=== PATIENT | female | born 1965 | race Caucasian/White ===

== ENCOUNTER 2019-01-04 10:18 | Emergency (ER) | payer BC ==
[2019-01-04] MEDS ORDERED: Ondansetron 4 MG/2 ML SDV IVPUSH ONE (11:13)
[2019-01-04] MEDS ORDERED: Sodium Chloride 0.9% 10 ML Syringe FLUSH PRN (11:13)
[2019-01-04] MEDS ORDERED: hydrALAZINE 20 MG/ML SDV IVPUSH ONE (11:16)
--- NOTE | 2019-01-04 11:29 | EDM.PDOC ---
ED HPI GENERAL MEDICAL PROBLEM - General Chief Complaint: Neurological Problem Stated Complaint: HIGH BLOOD PRESSURE,SOB,BODY NUMB Time Seen by Provider: 01/04/19 11:00 Source of Information: Reports: Patient History Limitations: Reports: No Limitations - History of Present Illness INITIAL COMMENTS - FREE TEXT/NARRATIVE: 53 year old female presents for evaluation and treatment of shortness of breath , numbness and tingling to the arms and legs and hypertension. Patient reports this morning at 0300 she awoke suddenly gasping for breath. She describes a choking sensation. Denies any chest pain or throat swelling associated with this episode. Reports episode lasted 1-2 minutes. States that she had an episode of urinary incontinence following the episode. Reports no shortness of breath now. Reports numbness and tingling to the body is significantly improved since earlier but is still present. Patient reports since the episode she has had a severe headache. Rated an 8 or 9 /10. Attributes the headache to her elevated blood pressure. Reports her blood pressure usually is 120s-130s/ 80-90s. She is on propanolol for htn. Last dose was this morning. Reports associated dizziness with the headache, no syncope. No vision changes. Headache does not change with position. Did try tylenol for the headache without relief. Denies any fevers, chills, nausea, vomiting or skin rashes. Denies any dysuria or back pain. Patient has a history of PE blood clots in 2013 following a . She was previously on Coumadin but is on any blood thinners at this time. PCP is Dr. Lopez. - Related Data Allergies Allergy/AdvReac Type Severity Reaction Status Date / Time No Known Allergies Allergy Verified 01/04/19 10:34 Home Meds: Home Meds Escitalopram [Lexapro] 20 mg PO DAILY 01/04/19 [History] Propranolol [Inderal LA] 60 mg PO BID 01/04/19 [History] Past Medical History Cardiovascular History: Reports: Hypertension [employer] History: Reports: Neurological History: Reports: Migraines Psychiatric History: Reports: Depression - Past Surgical History Other HEENT Surgeries/Procedures: "3 ear surgeries" GI Surgical History: Reports: Appendectomy Female Surgical History: Reports: Section Social & Family History - Tobacco Use Smoking Status *Q: Never Smoker - Recreational Drug Use Recreational Drug Use: No ED ROS GENERAL - Review of Systems Review Of Systems: See Below Constitutional: Denies: Fever, Chills Respiratory: Reports: Shortness of Breath. Denies: Pleuritic Chest Pain Cardiovascular: Reports: Chest Pain (right lower lateral chest), Lightheadedness. Denies: Syncope GI/Abdominal: Denies: Abdominal Pain, Nausea, Vomiting : Reports: Incontinence. Denies: Dysuria Musculoskeletal: Denies: Back Pain Neurological: Reports: Dizziness, Headache, Numbness, Tingling. Denies: Syncope ED EXAM, GENERAL - Physical Exam Exam: See Below Exam Limited By: No Limitations General Appearance: Alert, WD/WN, No Apparent Distress, Obese Eye Exam: Bilateral Eye: EOMI, Normal Inspection, PERRL Ears: Normal External Exam Nose: Normal Inspection Throat/Mouth: Normal Inspection, Normal Lips, Normal Oropharynx, Normal Voice, No Airway Compromise Respiratory/Chest: No Respiratory Distress, Lungs Clear, Normal Breath Sounds Cardiovascular: Normal Peripheral Pulses, Regular Rate, Rhythm, No Edema, No Murmur Neurological: Alert, Oriented, Normal Cognition Psychiatric: Normal Affect, Normal Mood Skin Exam: Warm, Dry, Normal Color EKG INTERPRETATION EKG Date: 01/04/19 Time: 11:22 Rhythm: NSR Rate (Beats/Min): 58 [place]: Normal P-Wave: Present QRS: Normal ST-T: Normal QT: Normal EKG Interpretation Comments: NSR at 58 bpm. No acute changes. Reviewed by myself and Dr. Reveles. Course - Vital Signs Last Recorded V/S: Last Vital Signs Temp 96.8 F 01/04/19 10:30 Pulse 58 L 01/04/19 10:30 Resp 16 01/04/19 10:30 BP 152/118 H 01/04/19 10:30 Pulse Ox 91 L 01/04/19 10:30 - Orders/Labs/Meds Orders: Active Orders 24 hr Category Date Time Status Cardiac Monitoring [RC] . DIRECTED Care 01/04/19 11:13 Active EKG Documentation Completion [RC] ASDIRECTED Care 01/04/19 11:14 Active Peripheral IV Care [RC] . DIRECTED Care 01/04/19 11:14 Active UA W/MICROSCOPIC [URIN] Stat Lab 01/04/19 12:43 Ordered Peripheral IV Insertion Adult [OM.PC] Routine Oth 01/04/19 11:11 Ordered EKG 12 Lead [EK] Stat Ther 01/04/19 11:13 Ordered Labs: Laboratory Tests 01/04/19 01/04/19 01/04/19 Range/Units 11:55 11:55 11:55 WBC 5.91 (3.98-10.04) K/mm3 RBC 5.14 (3.98-5.22) M/mm3 Hgb 15.1 (11.2-15.7) gm/L Hct 44.0 (34.1-44.9) % MCV 85.6 (79.4-94.8) fl MCH 29.4 (25.6-32.2) pg MCHC 34.3 (32.2-35.5) g/dl RDW Std Deviation 40.5 (36.4-46.3) fL Plt Count 240 (182-369) K/mm3 MPV 10.1 (9.4-12.3) fl Neut % (Auto) 64.0 (34.0-71.1) % Lymph % (Auto) 21.3 (19.3-51.7) % [place] % (Auto) 10.8 (4.7-12.5) % Eos % (Auto) 3.4 (0.7-5.8) Baso % (Auto) 0.5 (0.1-1.2) % Neut # (Auto) 3.78 (1.56-6.13) K/mm3 Lymph # (Auto) 1.26 (1.18-3.74) K/mm3 [place] # (Auto) 0.64 H (0.24-0.36) K/mm3 Eos # (Auto) 0.20 (0.04-0.36) K/mm3 Baso # (Auto) 0.03 (0.01-0.08) K/mm3 D-Dimer, Quantitative 0.38 (0.19-0.50) mg/L Sodium 141 (136-145) mEq/L Potassium 4.1 (3.5-5.1) mEq/L Chloride 105 (98-107) mEq/L Carbon Dioxide 26 (21-32) mEq/L Anion Gap 14.1 (5-15) BUN 14 (7-18) mg/dL Creatinine 0.8 (0.55-1.02) mg/dL Est Cr Clr Drug Dosing 69.42 mL/min Estimated GFR (MDRD) > 60 (>60) mL/min BUN/Creatinine Ratio 17.5 (14-18) Glucose 83 (74-106) mg/dL Calcium 9.1 (8.5-10.1) mg/dL Magnesium 2.0 (1.8-2.4) mg/dl Total Bilirubin 0.5 (0.2-1.0) mg/dL AST 32 (15-37) U/L ALT 54 (14-59) U/L Alkaline Phosphatase 118 H (46-116) U/L Troponin I < 0.017 (0.00-0.056) ng/mL Total Protein 7.2 (6.4-8.2) g/dl Albumin 3.7 (3.4-5.0) g/dl Globulin 3.5 gm/dL Albumin/Globulin Ratio 1.1 (1-2) Meds: Medications Discontinued Medications Generic Name Dose Route Start Last Admin Trade Name Freq PRN Reason Stop Dose Admin Hydralazine HCl 10 mg 01/04/19 11:16 01/04/19 11:59 Apresoline IVPUSH 01/04/19 11:17 10 mg ONETIME ONE Administration Ketorolac Tromethamine 30 mg 01/04/19 12:35 01/04/19 12:58 Toradol IVPUSH 01/04/19 12:36 30 mg ONETIME ONE Administration Ondansetron HCl 4 mg 01/04/19 11:13 01/04/19 11:57 Zofran IVPUSH 01/04/19 11:14 4 mg ONETIME ONE Administration Sodium Chloride 10 ml 01/04/19 11:13 01/04/19 11:56 Saline Flush FLUSH 10 ml ASDIRECTED PRN Administration Keep Vein Open - Radiology Interpretation Free Text/Narrative:: Chest: Two views of the chest were obtained. Comparison: No prior chest x-ray. Heart size and mediastinum are within normal limits. Lungs are clear. Bony structures are unremarkable. Impression: 1. Nothing acute is seen on two-view chest x-ray. Head CT Technique: Multiple axial sections through the brain were obtained. Intravenous contrast was not utilized. Comparison: No prior intracranial imaging. Findings: Ventricles along with basal cisterns and sulci over the convexities appear within normal limits for the patient's age. No abnormal parenchymal densities are seen. No evidence of intracranial hemorrhage. No midline shift or mass effect is seen. Bone window settings were reviewed which show no acute calvarial abnormality. Slight mucosal thickening is seen within a portion of the residual right sided mastoid sinuses. Surgery is noted within the right temporal bone. No acute calvarial abnormality is seen. Impression: 1. Slight mucosal thickening within a portion of the residual right sided mastoid air cells. This is most likely chronic. Previous right temporal bone surgery is seen. 2. No acute intracranial abnormality is identified. - Re-Assessments/Exams Free Text/Narrative Re-Assessment/Exam: 01/04/19 13:51 Reviewed the labs, EKG and imaging with the patient. Discussed possible etiologies such as anxiety. She did mention that she snores quite a bit at night. It is possible that she is suffering from sleep apnea and had an apneic episode which caused her episode this morning. I recommend she discuss with her primary care provider obtaining a sleep study to further evaluate this. We also discussed her hypertension and I encouraged her to check this 3 or 4 times a week and record this and follow-up with her primary care provider. Will discharge home today Discharge instructions as documented. Departure - Departure Time of Disposition: 13:58 Disposition: Home, Self-Care 01 Condition: Fair Clinical Impression: Shortness of breath - Discharge Information *PRESCRIPTION DRUG MONITORING PROGRAM REVIEWED*: No *COPY OF PRESCRIPTION DRUG MONITORING REPORT IN PATIENT RUTH ANN: No Instructions: Shortness of Breath, Adult, [id number] Referrals: Wilian Kauffman MD [Primary Care Provider] - Forms: ED Department Discharge Additional Instructions: Recommend contacting Dr. Lopez to discuss obtaining a sleep study. Recommend checking your blood pressure 3 times a week at different times throughout the day. Record this and bring this your follow-up appointment with Dr. Lopez. Continue current medications and plan of care. Please return to the ER for symptoms change or worsen. - My Orders Last 24 Hours: My Active Orders 01/04/19 11:11 Peripheral IV Insertion Adult [OM.PC] Routine 01/04/19 11:13 Cardiac Monitoring [RC] . DIRECTED EKG 12 Lead [EK] Stat 01/04/19 11:14 EKG Documentation Completion [RC] ASDIRECTED Peripheral IV Care [RC] . DIRECTED 01/04/19 12:43 UA W/MICROSCOPIC [URIN] Stat - Assessment/Plan Last 24 Hours: My Active Orders 01/04/19 11:11 Peripheral IV Insertion Adult [OM.PC] Routine 01/04/19 11:13 Cardiac Monitoring [RC] . DIRECTED EKG 12 Lead [EK] Stat 01/04/19 11:14 EKG Documentation Completion [RC] ASDIRECTED Peripheral IV Care [RC] . DIRECTED 01/04/19 12:43 UA W/MICROSCOPIC [URIN] Stat
[2019-01-04] MEDS ORDERED: Ketorolac 30 MG/ML SDV IVPUSH ONE (12:35)
--- NOTE | 2019-01-04 12:36 | CR ---
Chest: Two views of the chest were obtained. Comparison: No prior chest x-ray. Heart size and mediastinum are within normal limits. Lungs are clear. Bony structures are unremarkable. Impression: 1. Nothing acute is seen on two-view chest x-ray. Diagnostic code #1
--- NOTE | 2019-01-04 12:36 | CT ---
Head CT Technique: Multiple axial sections through the brain were obtained. Intravenous contrast was not utilized. Comparison: No prior intracranial imaging. Findings: Ventricles along with basal cisterns and sulci over the convexities appear within normal limits for the patient's age. No abnormal parenchymal densities are seen. No evidence of intracranial hemorrhage. No midline shift or mass effect is seen. Bone window settings were reviewed which show no acute calvarial abnormality. Slight mucosal thickening is seen within a portion of the residual right sided mastoid sinuses. Surgery is noted within the right temporal bone. No acute calvarial abnormality is seen. Impression: 1. Slight mucosal thickening within a portion of the residual right sided mastoid air cells. This is most likely chronic. Previous right temporal bone surgery is seen. 2. No acute intracranial abnormality is identified. Diagnostic code #2
== END 2019-01-04 14:45 | disposition home or self-care (01) ==
LOC: JD.ED 10:18
DX: R06.02 Shortness of breath (principal); I10 Essential (primary) hypertension; Z79.899 Other long term (current) drug therapy
CPT/HCPCS: 36415; 70450; 71046; 80053; 83735; 84484; 85025; 85379; 93005; 96374; 96375; 99285; J0360; J1885; J2405; 93010; 99284

== ENCOUNTER 2019-08-17 08:18 | Day surgery (SDC) | payer BC ==
--- NOTE | 2019-08-17 08:07 | PCM.PREANE ---
Preanesthetic Assessment - Anesthesia/Transfusion/Family Hx Anesthesia History: Prior Anesthesia Without Reaction Family History of Anesthesia Reaction: No Transfusion History: No Prior Transfusion(s) Intubation History: Unknown - Review of Systems Pulmonary: No Symptoms (SHELLI with CPAP, Ashtma: last used albuterol-March with chest cold /History of Pulmonary Emboli: 2003, ETOH: rarely) Cardiovascular: No Symptoms (HTN) Gastrointestinal: No Symptoms Neurological: No Symptoms (Motion Sickness) Other: Reports: None, Liver Problems (Elevated liver enzymes noted with hepatic steatosis.), Depression, Anxiety - Physical Assessment NPO Status Date: 08/16/19 NPO Status Time: 20:00 Vital Signs: HR:57 BP:150/82 Resp:16 Sat:94% Temp:97.3f Height: 1.63 m Weight: 110.677 kg ASA Class: 2 Mental Status: Alert & Oriented x3 Airway Class: Mallampati = 2 Dentition: Reports: Normal Dentition, Caries Thyro-Mental Finger Breadths: 3 Mouth Opening Finger Breadths: 3 ROM/Head Extension: Full Lungs: Clear to Auscultation, Normal Respiratory Effort Cardiovascular: Regular Rate, Regular Rhythm, No Murmurs - Lab Values: All labs reviewed and noted and within acceptable ranges to proceed with scheduled procedure. - Imaging/EKG Impressions: EKG: (SR rate=58) CXR: negative - Allergies Allergies/Adverse Reactions: Allergies Allergy/AdvReac Type Severity Reaction Status Date / Time acetaminophen [From Percocet] Allergy Other Verified 08/16/19 15:16 clarithromycin [From Biaxin] Allergy Other Verified 08/16/19 15:16 doxycycline Allergy Other Verified 08/16/19 15:16 oxycodone [From Percocet] Allergy Other Verified 08/16/19 15:16 - Anesthesia Plan Pre-Op Medication Ordered: Beta Fausto Beta Fausto: Propranolol Med Last Dose Date: 08/17/19 Med Last Dose Time: 06:30 - Acknowledgements Anesthesia Type Planned: General Anesthesia Pt an Appropriate Candidate for the Planned Anesthesia: Yes Alternatives and Risks of Anesthesia Discussed w Pt/Guardian: Yes Pt/Guardian Understands and Agrees with Anesthesia Plan: Yes PreAnesthesia Questionnaire HEENT History: Reports: Other (See Below) Other HEENT History: 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, chronic mastoiditis, history of I&D to ear, eustachian tube dysfuction Cardiovascular History: Reports: Hypertension Respiratory History: Reports: PE, Sleep Apnea Gastrointestinal History: Reports: Other (See Below) Other Gastrointestinal History: elevated LFTs, hepatic stenosis STAFF PHARMACIST History: Reports: Endometrial Ablation, , Other (See Below) Other OB/BYN History: uterine leiomyoma,left breast mass Musculoskeletal History: Reports: None Neurological History: Reports: Migraines Psychiatric History: Reports: Depression Endocrine/Metabolic History: Reports: Vitamin D Deficiency Hematologic History: Reports: Anemia Immunologic History: Reports: None Oncologic (Cancer) History: Reports: None Dermatologic History: Reports: None - Past Surgical History Head Surgeries/Procedures: Reports: None HEENT Surgical History: Reports: Myringotomy w Tube(s) Other HEENT Surgeries/Procedures: "3 ear surgeries" Cardiovascular Surgical History: Reports: None Respiratory Surgical History: Reports: None GI Surgical History: Reports: Appendectomy, Colonoscopy Female Surgical History: Reports: Section, Tubal Ligation, Other ( See Below) Other Female Surgeries/Procedures: laparoscopic lysis of adhesions Endocrine Surgical History: Reports: None Neurological Surgical History: Reports: None Musculoskeletal Surgical History: Reports: None Oncologic Surgical History: Reports: None Dermatological Surgical History: Reports: None - SUBSTANCE USE Smoking Status *Q: Never Smoker Recreational Drug Use History: No - HOME MEDS Home Medications: Home Meds Escitalopram [Lexapro] 20 mg PO DAILY 01/04/19 [History] Propranolol [Inderal LA] 60 mg PO BID 01/04/19 [History] Albuterol Sulfate [Proair Hfa] 1 - 2 puff INH Q4H PRN 08/16/19 [History] - CURRENT (IN HOUSE) MEDS Current Meds: Current Medications Lactated Ringer's (Ringers, Lactated) 1,000 mls @ 125 mls/hr IV ASDIRECTED NIDIA Stop: 08/17/19 23:00 Lidocaine/Sodium Bicarbonate (Buffered Lidocaine 1% In Ns 8.4%) 0.25 ml IDERM ONETIME PRN PRN Reason: Prior to IV Start Stop: 08/17/19 23:00 Sodium Chloride (Saline Flush) 10 ml FLUSH ASDIRECTED PRN PRN Reason: Keep Vein Open Stop: 08/17/19 23:00 Discontinued Medications Cefazolin Sodium (Ancef) Confirm Administered Dose 2 gm .ROUTE .STK-MED ONE Stop: 08/17/19 06:36 Dexamethasone (Dexamethasone) Confirm Administered Dose 20 mg .ROUTE .STK-MED ONE Stop: 08/17/19 06:36 Fentanyl (Sublimaze) Confirm Administered Dose 250 mcg .ROUTE .STK-MED ONE Stop: 08/17/19 06:37 Hydromorphone HCl (Dilaudid) Confirm Administered Dose 0.5 mg .ROUTE .STK-MED ONE Stop: 08/17/19 06:36 Lidocaine HCl (Xylocaine-Mpf 1%) Confirm Administered Dose 6 mls @ as directed .ROUTE .STK-MED ONE Stop: 08/17/19 06:36 Lactated Ringer's (Ringers, Lactated) Confirm Administered Dose 1,000 mls @ as directed .ROUTE .STK-MED ONE Stop: 08/17/19 06:36 Ketorolac Tromethamine (Toradol) Confirm Administered Dose 30 mg .ROUTE .STK- MED ONE Stop: 08/17/19 06:36 Midazolam HCl (Versed 1 Mg/Ml) Confirm Administered Dose 2 mg .ROUTE .STK-MED ONE Stop: 08/17/19 06:37 Ondansetron HCl (Zofran) Confirm Administered Dose 4 mg .ROUTE .STK-MED ONE Stop: 08/17/19 06:36 Propofol (Diprivan 20 Ml) Confirm Administered Dose 200 mg .ROUTE .STK-MED ONE Stop: 08/17/19 06:36 Rocuronium [place] (Zemuron) Confirm Administered Dose 100 mg .ROUTE .STK-MED ONE Stop: 08/17/19 06:36
[~2019-08-17 08:18] MED LIST: Dexamethasone 4 MG/ML 5 ML MDV ONE; HYDROmorphone 0.5 MG/0.5 ML Syringe ONE; Ketorolac 30 MG/ML SDV ONE; Lactated Ringers 1,000 ML IV SCH; Lactated Ringers 1,000 ML ONE; Lidocaine 1% 6 ML ONE; Lidocaine 1%/Sod Bicarbonate in NS 8.4% 1 ML Syringe IDERM PRN; Midazolam 1 MG/ML 2 ML SDV ONE; Ondansetron 4 MG/2 ML SDV ONE; Propofol 200 MG/20 ML SDV ONE; Rocuronium 100 MG/10 ML MDV ONE; Sodium Chloride 0.9% 10 ML Syringe FLUSH PRN; ceFAZolin 1 GM Vial ONE; fentaNYL 250 MCG/5 ML SDV ONE
[2019-08-17] MEDS ORDERED: Bupivacaine 0.5% 30 ML SDV ONE (09:01)
[2019-08-17] MEDS ORDERED: Sodium Chloride 0.9% 20 ML ONE (09:01)
[2019-08-17] MEDS ORDERED: Lidocaine 1% with EPINEPHrine 1:100,000 20 ML MDV ONE (09:01)
[2019-08-17] MEDS ORDERED: Albuterol 0.083% 2.5 MG/3 ML Neb Soln NEB SCH (10:00)
[2019-08-17] MEDS ORDERED: Phenylephrine/Normal Saline 100 MCG/ML 10 ML Syringe ONE (10:19)
[2019-08-17] MEDS ORDERED: ePHEDrine/Normal Saline 25 MG/5 ML Syringe ONE ×2 (10:31→11:32)
[2019-08-17] MEDS ORDERED: Ondansetron 4 MG/2 ML SDV IVPUSH PRN ×2 (10:33→13:07)
[2019-08-17] MEDS ORDERED: HYDROmorphone 0.5 MG/0.5 ML Syringe IVPUSH PRN (10:33)
[2019-08-17] MEDS ORDERED: fentaNYL 100 MCG/2 ML SDV IVPUSH PRN (10:33)
[2019-08-17] MEDS ORDERED: diphenhydrAMINE 50 MG/ML SDV IVPUSH PRN (10:33)
[2019-08-17] MEDS ORDERED: Albuterol 0.083% 2.5 MG/3 ML Neb Soln NEB PRN (10:33)
[2019-08-17] MEDS ORDERED: ePHEDrine 50 MG/ML SDV IVPUSH PRN (10:33)
[2019-08-17] MEDS ORDERED: Lactated Ringers 1,000 ML ONE ×3 (10:42→12:12)
[2019-08-17] MEDS ORDERED: Phenylephrine 1 MG in Sodium Chloride 0.9% 10 ML IV SCH (10:45)
[2019-08-17] MEDS ORDERED: Neostigmine Methylsulfate 1 MG/ML 5 ML Syringe ONE (11:00)
[2019-08-17] MEDS ORDERED: HYDROmorphone 0.5 MG/0.5 ML Syringe ONE (12:12)
--- NOTE | 2019-08-17 12:51 | PCM.OPNOTE ---
- General Post-Op/Procedure Note Date of Surgery/Procedure: 08/17/19 Operative Procedure(s): Laparoscope assisted vaginal hysterectomy bilateral salpingo-oophorectomy Pre Op Diagnosis: Postmenopausal bleeding, history of fibroid uterus Post-Op Diagnosis: Same Anesthesia Technique: General ET Tube Primary Surgeon: Shayne Padron Secondary Surgeon: Jamey Talbert Anesthesia Provider: Regine Banks Home Health Aid: Deb Orellana ([facility]) Reason Home Health Aid Was Necessary: Assist in surgery, decrease co-morbidity and mortality Role of Home Health Aid: Assist in surgery, decrease co-morbidity and mortality Fluid Replacement, Intraop: 2,400 Output, Urine Amount: 325 EBL in mLs: 600 Drain/Tube Comments:: rosenberg Complications: none Condition: Good Free Text/Narrative:: The patient was transported to the operating room placed under general anesthesia with endotracheal intubation in the low dorsal lithotomy position and prepared and draped in a sterile fashion. SCDs in place and functioning prior surgery. Ancef 2 g given intravenously prior surgery. After having been prepared and draped in a sterile fashion timeout performed confirming name date of and procedure. Rosenberg catheter was placed to gravity drainage and 2 mL of Marcaine without epinephrine injected into the area of the planned incision at the umbilicus a 6 mm incision was made pneumoperitoneum needle was introduced and pneumoperitoneum was obtained without difficulty, the 5 mm self- retaining trocar then introduced. Same procedure carried out on the right left side 2 fingerbreadths and 2 finger breaths absent superior iliac crest transilluminating the abdominal cavity and injecting 2 mL of Marcaine and 5 mm incision trochars introduced without difficulty under direct visualization with the laparoscope. The patient was placed in Trendelenburg position uterus was grasped and the planned procedure of hysterectomy with bilateral salpingo- oophorectomy was begun. Beginning on the right side the infundibulopelvic ligament was crossclamped with the Enseal activated and incised and proceeding towards the uterus the tissue was grasped with the Enseal activated and incised the round ligament was crossclamped activated and incised with Enseal. Proceeding caudad close to the uterus crossclamping with Enseal activating and incising until the reflection of the lower uterine segment at the area of the bladder reflection was undermined with Enseal crossclamped activated and incised and one additional bite on the right side to incorporate the uterine vasculature Enseal was activated and incised. Same procedure was counseled left side beginning at the left in infundibulopelvic ligament crossclamping with the Enseal activating and incising proceeding towards the uterus crossclamping, activating and incising with the Enseal. Round ligament was then crossclamped Enseal activated and incised. Proceeding cephalad the broad ligament was crossclamped with the Enseal activated in size until the reflection of the bladder flap at the lower uterine segment was approximated with the Enseal and undermined and meeting in the midline where the previous incision had been made for the bladder flap. One additional bite taken towards the cervix and the abdominal portion of the procedure was completed. The vaginal portion was then begun. Grasping the cervix and injecting 10 mL of lidocaine 0.25% with epinephrine and multiple confluent areas. A circumscribing incision was made with the scalpel. Tear colpotomy was then performed crossclamping the uterosacral cardinal bundles with the Enseal activating and incising anteriorly attempted entry into the anterior cul-de-sac but not able to do so at this time additional bite left and right taken with the Enseal activated and incised the anterior colpotomy was then performed without difficulty proceeding cephalad additional clamping of the Enseal activating incising the uterus was then removed. The posterior vaginal cuff was closed with running locked suture of 0 Monocryl. One arterial bleeder was noted and this was grasped and suture applied it appeared that the bleeding had been secured however as a precaution pneumoperitoneum was reobtained and inspection of the operative site showed no active bleeding. Returning to the vaginal portion of the procedure the anterior posterior cuff were approximated with running locking suture of 0 Monocryl. Returning to the laparoscopic portion of the procedure to check for bleeding no no active bleeding was encountered. FloSeal was placed along the raw surface areas to aid in hemostasis. Sponge needle pack instrument counts were correct on closure of the vagina as well as closure of the abdomen and removal of the trochars was accomplished without difficulty the 3 incisions were closed with 4- 0 interrupted Monocryl and Dermabond applied. No blood transfusions required during the procedure. She was transported postanesthesia care unit in satisfactory condition. Talked with her and discussed the surgical procedure all questions were answered to his voiced satisfaction. Patient will be kept overnight as a precaution to observe for bleeding and other complications. 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)
--- NOTE | 2019-08-17 13:05 | PCM.POSTAN ---
POST ANESTHESIA ASSESSMENT - MENTAL STATUS Mental Status: Alert - VITAL SIGNS Vital Signs: Last Vital Signs Temp 97.8f 08/17/19 1250 Pulse 57 08/17/19 1250 Resp 13 08/17/19 1250 BP 143/79 08/17/19 1250 Pulse Ox 97 08/17/19 1250 - RESPIRATORY Respiratory Status: Respiratory Rate WNL, Airway Patent, O2 Saturation Stable, Supplemental Oxygen - CARDIOVASCULAR CV Status: Pulse Rate WNL, Blood Pressure Stable - GASTROINTESTINAL GI Status: No Symptoms - POST OP HYDRATION Hydration Status: Adequate & Stable
[2019-08-17] MEDS ORDERED: Acetaminophen/HYDROcodone 325-5 MG Tab PO PRN (13:07)
--- NOTE | 2019-08-17 15:10 | PCM48HPAN ---
Post Anesthesia Note - EVALUATION WITHIN 48HRS OF ANESTHETIC Vital Signs in Normal Range: Yes Patient Participated in Evaluation: Yes Respiratory Function Stable: Yes Airway Patent: Yes Cardiovascular Function Stable: Yes Hydration Status Stable: Yes Pain Control Satisfactory: Yes Nausea and Vomiting Control Satisfactory: Yes Mental Status Recovered: Yes Vital Signs: Last Vital Signs Temp 36.2 C 08/17/19 13:50 Pulse 56 L 08/17/19 14:20 Resp 11 L 08/17/19 14:20 BP 110/63 08/17/19 14:20 Pulse Ox 98 08/17/19 14:20 - COMMENTS/OBSERVATIONS Free Text/Narrative:: Mary is comfortable. She has a history of SHELLI with CPAP use. Pulse oximeter recommended post op for monitoring.
[2019-08-17] MEDS: Ketorolac 30 MG/ML SDV IVPUSH SCH ×2 (17:01→18:57)
[2019-08-17] MEDS ORDERED: Enoxaparin 40 MG/0.4 ML Syringe SUBCUT ONE (19:00)
[2019-08-17] MEDS: Propranolol 60 MG Cap.ER PO SCH (21:20)
[2019-08-17] MEDS: Acetaminophen 325 MG Tab PO PRN (21:35)
[2019-08-18] MEDS: Ketorolac 30 MG/ML SDV IVPUSH SCH (02:49)
[2019-08-18] MEDS: Propranolol 60 MG Cap.ER PO SCH (08:54)
[2019-08-18] MEDS: Acetaminophen 325 MG Tab PO PRN (08:55)
[2019-08-18] MEDS ORDERED: Citalopram 20 MG Tab PO SCH (09:00)
--- NOTE | 2019-08-18 10:14 | PCM.SN ---
- Free Text/Narrative Note: Post Op Note Subjective: Patient reports feeling well overall. Pain minimal and controlled with oral medications. Tolerating regular diet. Reports not passing flatus. Voiding without difficulty after removal of her catheter this morning. Ambulating without difficulty but did have some mild lightheadedness upon first standing this morning. Reports minimal vaginal bleeding at this time. Objective: Vitals Vital Signs - 8 hr 08/18/19 08/18/19 08/18/19 02:54 05:43 07:53 Temperature 36.3 C 36.5 C Pulse, 54 L 55 L Peripheral Respiratory 14 16 Rate Blood Pressure 112/54 L 125/75 O2 Sat by Pulse 99 92 L Oximetry O2 Sat by Pulse 94 L Oximetry [ Nasal Cannula] Gen: No acute distress, alert and oriented Lungs: Clear to auscultation bilaterally Heart: Regular rate and rhythm Abdomen: Soft, minimal appropriate tenderness, nondistended, bowel sounds positive Incisions: Healing well, no bleeding or discharge, no erythema present, skin glue covering incisions Pelvic: No bleeding present on lenny-pad Laboratory Results - last 24 hr 08/17/19 08/17/19 08/18/19 Range/Units 08:50 19:05 05:11 WBC 10.43 H 12.23 H (3.98-10.04) K/mm3 RBC 4.29 3.86 L (3.98-5.22) M/mm3 Hgb 12.3 D 11.4 (11.2-15.7) gm/dl Hct 37.8 34.1 (34.1-44.9) % MCV 88.1 88.3 (79.4-94.8) fl MCH 28.7 29.5 (25.6-32.2) pg MCHC 32.5 33.4 (32.2-35.5) g/dl RDW Std Deviation 39.9 39.5 (36.4-46.3) fL Plt Count 243 237 (182-369) K/mm3 MPV 9.9 10.4 (9.4-12.3) fl Neut % (Auto) 91.8 H 87.3 H (34.0-71.1) % Lymph % (Auto) 6.8 L 8.2 L (19.3-51.7) % [place] % (Auto) 1.2 L 4.3 L (4.7-12.5) % Eos % (Auto) 0 L 0.1 L (0.7-5.8) Baso % (Auto) 0.1 0.1 (0.1-1.2) % Neut # (Auto) 9.57 H 10.69 H (1.56-6.13) K/mm3 Lymph # (Auto) 0.71 L 1.00 L (1.18-3.74) K/mm3 [place] # (Auto) 0.13 L 0.52 H (0.24-0.36) K/mm3 Eos # (Auto) 0.00 L 0.01 L (0.04-0.36) K/mm3 Baso # (Auto) 0.01 0.01 (0.01-0.08) K/mm3 Manual Slide Review Abnormal smear Abnormal smear Blood Type A POSITIVE Gel Antibody Screen Negative Crossmatch See Detail Assesment/Plan: 53-year-old with postmenopausal bleeding and uterine fibroid status post laparoscopic-assisted vaginal hysterectomy with bilateral salpingo-oophorectomy POD #1 Doing well No concerns at this time Routine post op care Monitor vitals Patient with history of DVT x3 and started on Lovenox 40 mg subcutaneous last evening at 1900 hrs. Patient to continue this for 2 weeks after discharge. Patient with drop in her hemoglobin from 12.3 at 1800 last evening down to 11.4 at 0500 this morning. We will get a repeat blood draw to check her hemoglobin level at 11 AM to check for stability of her bleeding status. Anticipate discharge home today if she is having minimal change in her hemoglobin level on recheck later this morning Jamey Talbert MD 10:13 AM 08/18/2019
--- NOTE | 2019-08-18 11:44 | PCM.DCSUM1 ---
Discharge Summary - Hospital Course Free Text/Narrative:: The patient was transported to the operating room placed under general anesthesia with endotracheal intubation in the low dorsal lithotomy position and prepared and draped in a sterile fashion. SCDs in place and functioning prior surgery. Ancef 2 g given intravenously prior surgery. After having been prepared and draped in a sterile fashion timeout performed confirming name date of and procedure. Hennessy catheter was placed to gravity drainage and 2 mL of Marcaine without epinephrine injected into the area of the planned incision at the umbilicus a 6 mm incision was made pneumoperitoneum needle was introduced and pneumoperitoneum was obtained without difficulty, the 5 mm self- retaining trocar then introduced. Same procedure carried out on the right left side 2 fingerbreadths and 2 finger breaths absent superior iliac crest transilluminating the abdominal cavity and injecting 2 mL of Marcaine and 5 mm incision trochars introduced without difficulty under direct visualization with the laparoscope. The patient was placed in Trendelenburg position uterus was grasped and the planned procedure of hysterectomy with bilateral salpingo- oophorectomy was begun. Beginning on the right side the infundibulopelvic ligament was crossclamped with the Enseal activated and incised and proceeding towards the uterus the tissue was grasped with the Enseal activated and incised the round ligament was crossclamped activated and incised with Enseal. Proceeding caudad close to the uterus crossclamping with Enseal activating and incising until the reflection of the lower uterine segment at the area of the bladder reflection was undermined with Enseal crossclamped activated and incised and one additional bite on the right side to incorporate the uterine vasculature Enseal was activated and incised. Same procedure was counseled left side beginning at the left in infundibulopelvic ligament crossclamping with the Enseal activating and incising proceeding towards the uterus crossclamping, activating and incising with the Enseal. Round ligament was then crossclamped Enseal activated and incised. Proceeding cephalad the broad ligament was crossclamped with the Enseal activated in size until the reflection of the bladder flap at the lower uterine segment was approximated with the Enseal and undermined and meeting in the midline where the previous incision had been made for the bladder flap. One additional bite taken towards the cervix and the abdominal portion of the procedure was completed. The vaginal portion was then begun. Grasping the cervix and injecting 10 mL of lidocaine 0.25% with epinephrine and multiple confluent areas. A circumscribing incision was made with the scalpel. Tear colpotomy was then performed crossclamping the uterosacral cardinal bundles with the Enseal activating and incising anteriorly attempted entry into the anterior cul-de-sac but not able to do so at this time additional bite left and right taken with the Enseal activated and incised the anterior colpotomy was then performed without difficulty proceeding cephalad additional clamping of the Enseal activating incising the uterus was then removed. The posterior vaginal cuff was closed with running locked suture of 0 Monocryl. One arterial bleeder was noted and this was grasped and suture applied it appeared that the bleeding had been secured however as a precaution pneumoperitoneum was reobtained and inspection of the operative site showed no active bleeding. Returning to the vaginal portion of the procedure the anterior posterior cuff were approximated with running locking suture of 0 Monocryl. Returning to the laparoscopic portion of the procedure to check for bleeding no no active bleeding was encountered. FloSeal was placed along the raw surface areas to aid in hemostasis. Sponge needle pack instrument counts were correct on closure of the vagina as well as closure of the abdomen and removal of the trochars was accomplished without difficulty the 3 incisions were closed with 4- 0 interrupted Monocryl and Dermabond applied. No blood transfusions required during the procedure. She was transported postanesthesia care unit in satisfactory condition. Talked with her and discussed the surgical procedure all questions were answered to his voiced satisfaction. Patient will be kept overnight as a precaution to observe for bleeding and other complications. 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 SCDs in place and functioning prior surgery. Ancef 2 g given intravenously prior surgery. After having been prepared and draped in a sterile fashion timeout performed confirming name date of and procedure. Hennessy catheter was placed to gravity drainage and 2 mL of Marcaine without epinephrine injected into the area of the planned incision at the umbilicus a 6 mm incision was made pneumoperitoneum needle was introduced and pneumoperitoneum was obtained without difficulty, the 5 mm self- retaining trocar then introduced. Same procedure carried out on the right left side 2 fingerbreadths and 2 finger breaths absent superior iliac crest transilluminating the abdominal cavity and injecting 2 mL of Marcaine and 5 mm incision trochars introduced without difficulty under direct visualization with the laparoscope. The patient was placed in Trendelenburg position uterus was grasped and the planned procedure of hysterectomy with bilateral salpingo- oophorectomy was begun. Beginning on the right side the infundibulopelvic ligament was crossclamped with the Enseal activated and incised and proceeding towards the uterus the tissue was grasped with the Enseal activated and incised the round ligament was crossclamped activated and incised with Enseal. Proceeding caudad close to the uterus crossclamping with Enseal activating and incising until the reflection of the lower uterine segment at the area of the bladder reflection was undermined with Enseal crossclamped activated and incised and one additional bite on the right side to incorporate the uterine vasculature Enseal was activated and incised. Same procedure was counseled left side beginning at the left in infundibulopelvic ligament crossclamping with the Enseal activating and incising proceeding towards the uterus crossclamping, activating and incising with the Enseal. Round ligament was then crossclamped Enseal activated and incised. Proceeding cephalad the broad ligament was crossclamped with the Enseal activated in size until the reflection of the bladder flap at the lower uterine segment was approximated with the Enseal and undermined and meeting in the midline where the previous incision had been made for the bladder flap. One additional bite taken towards the cervix and the abdominal portion of the procedure was completed. The vaginal portion was then begun. Grasping the cervix and injecting 10 mL of lidocaine 0.25% with epinephrine and multiple confluent areas. A circumscribing incision was made with the scalpel. Tear colpotomy was then performed crossclamping the uterosacral cardinal bundles with the Enseal activating and incising anteriorly attempted entry into the anterior cul-de-sac but not able to do so at this time additional bite left and right taken with the Enseal activated and incised the anterior colpotomy was then performed without difficulty proceeding cephalad additional clamping of the Enseal activating incising the uterus was then removed. The posterior vaginal cuff was closed with running locked suture of 0 Monocryl. One arterial bleeder was noted and this was grasped and suture applied it appeared that the bleeding had been secured however as a precaution pneumoperitoneum was reobtained and inspection of the operative site showed no active bleeding. Returning to the vaginal portion of the procedure the anterior posterior cuff were approximated with running locking suture of 0 Monocryl. Returning to the laparoscopic portion of the procedure to check for bleeding no no active bleeding was encountered. FloSeal was placed along the raw surface areas to aid in hemostasis. Sponge needle pack instrument counts were correct on closure of the vagina as well as closure of the abdomen and removal of the trochars was accomplished without difficulty the 3 incisions were closed with 4- 0 interrupted Monocryl and Dermabond applied. No blood transfusions required during the procedure. She was transported postanesthesia care unit in satisfactory condition. Talked with her and discussed the surgical procedure all questions were answered to his voiced satisfaction. Patient will be kept overnight as a precaution to observe for bleeding and other complications. 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 SCDs in place and functioning prior surgery. Ancef 2 g given intravenously prior surgery. After having been prepared and draped in a sterile fashion timeout performed confirming name date of and procedure. Hennessy catheter was placed to gravity drainage and 2 mL of Marcaine without epinephrine injected into the area of the planned incision at the umbilicus a 6 mm incision was made pneumoperitoneum needle was introduced and pneumoperitoneum was obtained without difficulty, the 5 mm self-retaining trocar then introduced. Same procedure carried out on the right left side 2 fingerbreadths and 2 finger breaths absent superior iliac crest transilluminating the abdominal cavity and injecting 2 mL of Marcaine and 5 mm incision trochars introduced without difficulty under direct visualization with the laparoscope. The patient was placed in Trendelenburg position uterus was grasped and the planned procedure of hysterectomy with bilateral salpingo-oophorectomy was begun. Beginning on the right side the infundibulopelvic ligament was crossclamped with the Enseal activated and incised and proceeding towards the uterus the tissue was grasped with the Enseal activated and incised the round ligament was crossclamped activated and incised with Enseal. Proceeding caudad close to the uterus crossclamping with Enseal activating and incising until the reflection of the lower uterine segment at the area of the bladder reflection was undermined with Enseal crossclamped activated and incised and one additional bite on the right side to incorporate the uterine vasculature Enseal was activated and incised. Same procedure was counseled left side beginning at the left in infundibulopelvic ligament crossclamping with the Enseal activating and incising proceeding towards the uterus crossclamping, activating and incising with the Enseal. Round ligament was then crossclamped Enseal activated and incised. Proceeding cephalad the broad ligament was crossclamped with the Enseal activated in size until the reflection of the bladder flap at the lower uterine segment was approximated with the Enseal and undermined and meeting in the midline where the previous incision had been made for the bladder flap. One additional bite taken towards the cervix and the abdominal portion of the procedure was completed. The vaginal portion was then begun. Grasping the cervix and injecting 10 mL of lidocaine 0.25% with epinephrine and multiple confluent areas. A circumscribing incision was made with the scalpel. Tear colpotomy was then performed crossclamping the uterosacral cardinal bundles with the Enseal activating and incising anteriorly attempted entry into the anterior cul-de-sac but not able to do so at this time additional bite left and right taken with the Enseal activated and incised the anterior colpotomy was then performed without difficulty proceeding cephalad additional clamping of the Enseal activating incising the uterus was then removed. The posterior vaginal cuff was closed with running locked suture of 0 Monocryl. One arterial bleeder was noted and this was grasped and suture applied it appeared that the bleeding had been secured however as a precaution pneumoperitoneum was reobtained and inspection of the operative site showed no active bleeding. Returning to the vaginal portion of the procedure the anterior posterior cuff were approximated with running locking suture of 0 Monocryl. Returning to the laparoscopic portion of the procedure to check for bleeding no no active bleeding was encountered. FloSeal was placed along the raw surface areas to aid in hemostasis. Sponge needle pack instrument counts were correct on closure of the vagina as well as closure of the abdomen and removal of the trochars was accomplished without difficulty the 3 incisions were closed with 4-0 interrupted Monocryl and Dermabond applied. No blood transfusions required during the procedure. She was transported postanesthesia care unit in satisfactory condition. Talked with her and discussed the surgical procedure all questions were answered to his voiced satisfaction. Patient will be kept overnight as a precaution to observe for bleeding and other complications. 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) Diagnosis: Stroke: No - Discharge Data Discharge Date: 08/18/19 Discharge Disposition: Home, Self-Care 01 Condition: Good - Referral to Home Health Primary Care Physician: Wilian Kauffman MD - Discharge Diagnosis/Problem(s) (1) Postmenopausal bleeding SNOMED Code(s): 57634688 ICD Code: N95.0 - POSTMENOPAUSAL BLEEDING Status: Acute Current Visit: Yes (2) Uterine fibroid SNOMED Code(s): 63663778 ICD Code: D25.9 - LEIOMYOMA OF UTERUS, UNSPECIFIED Status: Acute Current Visit: Yes (3) S/P laparoscopic assisted vaginal hysterectomy (LAVH) SNOMED Code(s): 650797095, 13493424, 288618785 ICD Code: Z90.710 - ACQUIRED ABSENCE OF BOTH CERVIX AND UTERUS Status: Acute Current Visit: Yes (4) S/P BSO (bilateral salpingo-oophorectomy) SNOMED Code(s): 780318846, 471686627 ICD Code: Z90.722 - ACQUIRED ABSENCE OF OVARIES, BILATERAL Status: Acute Current Visit: Yes (5) History of DVT (deep vein thrombosis) SNOMED Code(s): 143359600 ICD Code: Z86.718 - PERSONAL HISTORY OF OTHER VENOUS THROMBOSIS AND EMBOLISM Status: Acute Current Visit: Yes - Patient Summary/Data Operative Procedure(s) Performed: Laparoscope assisted vaginal hysterectomy bilateral salpingo-oophorectomy Complications: Intraoperative hemorrhage without need for intraoperative blood transfusion Consults: None Hospital Course: Patient was admitted for and underwent a laparoscopic-assisted vaginal hysterectomy with bilateral salpingo-oophorectomy on 08/17/2019. The procedure was complicated by intraoperative hemorrhage with EBL of 600 mL. She did not require a blood transfusion intraoperatively. The case was able to be completed without any other complications. Please see operative note for full details. Patient was monitored for possible need for blood transfusion after the procedure given her abnormal amount of bleeding during the procedure. Postoperatively she did very well and did not have any complications. Her hemoglobin in the evening of postoperative day #0 was 12.3. She was given Lovenox 40 mg subcutaneous for history of DVT x3. She was able to meet all postoperative milestones. Her pain was able to be controlled with oral medications as well as IV Toradol. She was tolerating regular diet. She was ambulating without difficulty. Her Hennessy catheter was removed in the morning of postoperative day #1 and she was able to urinate without difficulty. She was passing flatus in the morning of postoperative day #1. In the deliver driver of postoperative day #1 her hemoglobin was 11.4 and on repeat in late morning it came back at 11.3. It was felt to be stable at this time. She desired to be discharged home in the late morning of postoperative day #1. Patient to continue her Lovenox 40 mg subcutaneous daily for 2 weeks after the procedure. Patient to return to clinic for routine postoperative appointment in 2 weeks or earlier as needed. - Patient Instructions Diet: Regular Diet as Tolerated Activity: Apply Ice, As Tolerated, No Lifting Over 20 Pounds Activity, Other: Nothing in the vagina for 6 weeks Driving: Do Not Drive (While taking narcotic medications or having significant pain) Showering/Bathing: May Shower, No Tub Bathing/Swimming (For 2 weeks) Wound/Incision Care: Keep Operative Site/Wound Site Clean and Dry Notify Provider of: Fever, Increased Pain, Swelling and Redness, Drainage, Nausea and/or Vomiting Other/Special Instructions: Please contact your physician's office if you have heavy vaginal bleeding enough to soak a pad in less than an hour. - Discharge Plan *PRESCRIPTION DRUG MONITORING PROGRAM REVIEWED*: Yes *COPY OF PRESCRIPTION DRUG MONITORING REPORT IN PATIENT RUTH ANN: No Prescriptions/Med Rec: Acetaminophen/HYDROcodone [[place] 325-5 MG] 1 - 2 tab PO Q6H #25 tablet Docusate Sodium [Colace] 100 mg PO BID #60 capsule Ibuprofen 600 mg PO Q6H PRN #60 tablet PRN Reason: Pain Ondansetron [Zofran ODT] 4 mg PO Q6H PRN #20 tab.dis PRN Reason: Nausea Home Medications: Home Meds Escitalopram [Lexapro] 20 mg PO DAILY 01/04/19 [History] Propranolol [Inderal LA] 60 mg PO BID 01/04/19 [History] Albuterol Sulfate [Proair Hfa] 1 - 2 puff INH Q4H PRN 08/16/19 [History] Acetaminophen/HYDROcodone [[place] 325-5 MG] 1 - 2 tab PO Q6H #25 tablet 08/17/19 [Rx] Ondansetron [Zofran ODT] 4 mg PO Q6H PRN #20 tab.dis 08/17/19 [Rx] Docusate Sodium [Colace] 100 mg PO BID #60 capsule 08/18/19 [Rx] Ibuprofen 600 mg PO Q6H PRN #60 tablet 08/18/19 [Rx] Patient Handouts: Acetaminophen; Hydrocodone tablets or capsules, Ondansetron tablets, Laparoscopically Assisted Vaginal Hysterectomy, Care After Referrals: Shayne Padron MD [Physician] - (Follow-up in 2 weeks for routine postoperative appointment.) - Discharge Summary/Plan Comment DC Time >30 min.: No - Patient Data Vitals - Most Recent: Last Vital Signs Temp 36.5 C 08/18/19 07:53 Pulse 55 L 08/18/19 07:53 Resp 16 08/18/19 07:53 BP 125/75 08/18/19 07:53 Pulse Ox 92 L 08/18/19 07:53 Weight - Most Recent: 110.677 kg I&O - Last 24 hours: Intake & Output 08/17/19 08/18/19 08/18/19 22:59 06:59 14:59 Intake Total 240 240 Balance 240 240 Lab Results - Last 24 hrs: Laboratory Results - last 24 hr 08/17/19 08/17/19 08/18/19 Range/Units 08:50 19:05 05:11 WBC 10.43 H 12.23 H (3.98-10.04) K/mm3 RBC 4.29 3.86 L (3.98-5.22) M/mm3 Hgb 12.3 D 11.4 (11.2-15.7) gm/dl Hct 37.8 34.1 (34.1-44.9) % MCV 88.1 88.3 (79.4-94.8) fl MCH 28.7 29.5 (25.6-32.2) pg MCHC 32.5 33.4 (32.2-35.5) g/dl RDW Std Deviation 39.9 39.5 (36.4-46.3) fL Plt Count 243 237 (182-369) K/mm3 MPV 9.9 10.4 (9.4-12.3) fl Neut % (Auto) 91.8 H 87.3 H (34.0-71.1) % Lymph % (Auto) 6.8 L 8.2 L (19.3-51.7) % [place] % (Auto) 1.2 L 4.3 L (4.7-12.5) % Eos % (Auto) 0 L 0.1 L (0.7-5.8) Baso % (Auto) 0.1 0.1 (0.1-1.2) % Neut # (Auto) 9.57 H 10.69 H (1.56-6.13) K/mm3 Lymph # (Auto) 0.71 L 1.00 L (1.18-3.74) K/mm3 [place] # (Auto) 0.13 L 0.52 H (0.24-0.36) K/mm3 Eos # (Auto) 0.00 L 0.01 L (0.04-0.36) K/mm3 Baso # (Auto) 0.01 0.01 (0.01-0.08) K/mm3 Manual Slide Review Abnormal smear Abnormal smear Blood Type A POSITIVE Gel Antibody Screen Negative Crossmatch See Detail 08/18/19 Range/Units 11:03 WBC (3.98-10.04) K/mm3 RBC (3.98-5.22) M/mm3 Hgb 11.3 (11.2-15.7) gm/dl Hct 34.9 (34.1-44.9) % MCV (79.4-94.8) fl MCH (25.6-32.2) pg MCHC (32.2-35.5) g/dl RDW Std Deviation (36.4-46.3) fL Plt Count (182-369) K/mm3 MPV (9.4-12.3) fl Neut % (Auto) (34.0-71.1) % Lymph % (Auto) (19.3-51.7) % [place] % (Auto) (4.7-12.5) % Eos % (Auto) (0.7-5.8) Baso % (Auto) (0.1-1.2) % Neut # (Auto) (1.56-6.13) K/mm3 Lymph # (Auto) (1.18-3.74) K/mm3 [place] # (Auto) (0.24-0.36) K/mm3 Eos # (Auto) (0.04-0.36) K/mm3 Baso # (Auto) (0.01-0.08) K/mm3 Manual Slide Review Blood Type Gel Antibody Screen Crossmatch Med Orders - Current: Current Medications Acetaminophen (Tylenol) 650 mg PO Q4H PRN PRN Reason: Pain (mild 1-3) Last Admin: 08/18/19 08:55 Dose: 650 mg Hydrocodone Bitart/Acetaminophen ([place] 325-5 Mg) 2 tab PO Q3H PRN PRN Reason: Pain (moderate 4-6) Citalopram Hydrobromide (Celexa) 40 mg PO DAILY [facility] Last Admin: 08/18/19 08:54 Dose: 40 mg Ondansetron HCl (Zofran) 4 mg IVPUSH Q6H PRN PRN Reason: Nausea/Vomiting Propranolol HCl (Inderal La) 60 mg PO BID [facility] Last Admin: 08/18/19 08:54 Dose: 60 mg Discontinued Medications Albuterol (Proventil Neb Soln) 2.5 mg NEB ONETIME [facility] Stop: 08/17/19 18:00 Last Admin: 08/17/19 09:41 Dose: 2.5 mg Albuterol (Proventil Neb Soln) 2.5 mg NEB ONETIME PRN PRN Reason: bronchodilation Stop: 08/17/19 14:00 Bupivacaine HCl (Marcaine 0.5%) Confirm Administered Dose 30 ml .ROUTE .STK-MED ONE Stop: 08/17/19 09:02 Last Admin: 08/17/19 10:31 Dose: 20 ml Cefazolin Sodium (Ancef) Confirm Administered Dose 2 gm .ROUTE .STK-MED ONE Stop: 08/17/19 06:36 Dexamethasone (Dexamethasone) Confirm Administered Dose 20 mg .ROUTE .STK-MED ONE Stop: 08/17/19 06:36 Diphenhydramine HCl (Benadryl) 25 mg IVPUSH Q6H PRN PRN Reason: pruritis Stop: 08/17/19 14:00 Enoxaparin Sodium (Lovenox) 40 mg SUBCUT ONETIME ONE Stop: 08/17/19 19:01 Last Admin: 08/17/19 21:20 Dose: 40 mg Ephedrine Sulfate (Ephedrine In Ns) Confirm Administered Dose 25 mg .ROUTE .STK- MED ONE Stop: 08/17/19 10:32 Ephedrine Sulfate (Ephedrine Sulfate) 5 mg IVPUSH ASDIRECTED PRN PRN Reason: Hypotension Stop: 08/17/19 14:00 Ephedrine Sulfate (Ephedrine In Ns) Confirm Administered Dose 25 mg .ROUTE .STK- MED ONE Stop: 08/17/19 11:33 Fentanyl (Sublimaze) Confirm Administered Dose 250 mcg .ROUTE .STK-MED ONE Stop: 08/17/19 06:37 Fentanyl (Sublimaze) 50 mcg IVPUSH Q5M PRN PRN Reason: Pain Stop: 08/17/19 14:00 Glycopyrrolate () Confirm Administered Dose 1 mg .ROUTE .STK-MED ONE Stop: 08/17/19 10:07 Hydromorphone HCl (Dilaudid) Confirm Administered Dose 0.5 mg .ROUTE .STK-MED ONE Stop: 08/17/19 06:36 Hydromorphone HCl (Dilaudid) 0.5 mg IVPUSH Q15M PRN PRN Reason: Pain (severe 7-10) Stop: 08/17/19 12:00 Hydromorphone HCl (Dilaudid) Confirm Administered Dose 0.5 mg .ROUTE .STK-MED ONE Stop: 08/17/19 12:13 Lactated Ringer's (Ringers, Lactated) 1,000 mls @ 125 mls/hr IV ASDIRECTED NIDIA Stop: 08/17/19 23:00 Last Admin: 08/17/19 08:50 Dose: 125 mls/hr Lidocaine HCl (Xylocaine-Mpf 1%) Confirm Administered Dose 6 mls @ as directed .ROUTE .STK-MED ONE Stop: 08/17/19 06:36 Lactated Ringer's (Ringers, Lactated) Confirm Administered Dose 1,000 mls @ as directed .ROUTE .STK-MED ONE Stop: 08/17/19 06:36 Sodium Chloride (Normal Saline) Confirm Administered Dose 20 mls @ as directed .ROUTE .STK-MED ONE Stop: 08/17/19 09:02 Phenylephrine HCl 1 mg/ Sodium (Chloride) 10.1 mls @ 1 mls/sec IV TITRATE NIDIA; Protocol Stop: 08/17/19 14:00 Lactated Ringer's (Ringers, Lactated) Confirm Administered Dose 1,000 mls @ as directed .ROUTE .STK-MED ONE Stop: 08/17/19 10:43 Lactated Ringer's (Ringers, Lactated) Confirm Administered Dose 1,000 mls @ as directed .ROUTE .STK-MED ONE Stop: 08/17/19 11:49 Lactated Ringer's (Ringers, Lactated) Confirm Administered Dose 1,000 mls @ as directed .ROUTE .STK-MED ONE Stop: 08/17/19 12:13 Ketorolac Tromethamine (Toradol) Confirm Administered Dose 30 mg .ROUTE .STK- MED ONE Stop: 08/17/19 06:36 Ketorolac Tromethamine (Toradol) 30 mg IVPUSH Q6H [facility] Stop: 08/18/19 01:31 Last Admin: 08/18/19 02:49 Dose: 30 mg Lidocaine/Epinephrine (Xylocaine 1% With Epinephrine 1:100,000) Confirm Administered Dose 20 ml .ROUTE .STK-MED ONE Stop: 08/17/19 09:02 Last Admin: 08/17/19 11:00 Dose: 10 ml Lidocaine/Sodium Bicarbonate (Buffered Lidocaine 1% In Ns 8.4%) 0.25 ml IDERM ONETIME PRN PRN Reason: Prior to IV Start Stop: 08/17/19 23:00 Last Admin: 08/17/19 08:49 Dose: 0.25 ml Midazolam HCl (Versed 1 Mg/Ml) Confirm Administered Dose 2 mg .ROUTE .STK-MED ONE Stop: 08/17/19 06:37 Neostigmine Methylsulfate (Neostigmine) Confirm Administered Dose 5 mg .ROUTE .STK-MED ONE Stop: 08/17/19 11:01 Ondansetron HCl (Zofran) Confirm Administered Dose 4 mg .ROUTE .STK-MED ONE Stop: 08/17/19 06:36 Ondansetron HCl (Zofran) 4 mg IVPUSH ONETIME PRN PRN Reason: Nausea/Vomiting Stop: 08/17/19 14:00 Phenylephrine HCl (Phenylephrine In Ns 100 Mcg/Ml) Confirm Administered Dose 1 mg .ROUTE .STK-MED ONE Stop: 08/17/19 10:20 Propofol (Diprivan 20 Ml) Confirm Administered Dose 200 mg .ROUTE .STK-MED ONE Stop: 08/17/19 06:36 Rocuronium [place] (Zemuron) Confirm Administered Dose 100 mg .ROUTE .STK-MED ONE Stop: 08/17/19 06:36 Sodium Chloride (Saline Flush) 10 ml FLUSH ASDIRECTED PRN PRN Reason: Keep Vein Open Stop: 08/17/19 23:00 Last Admin: 08/17/19 11:00 Dose: 7.5 ml
== END 2019-08-18 13:08 | disposition home or self-care (01) ==
LOC: JD.SDS 08:18 → EDSTATUS 10:00 → JD.MS 15:45 → JD.SDS 08-18 13:08
PROVIDERS: ATTEND Obstetrics & Gynecology
DX: N80.0 Endometriosis of uterus (principal); D27.1 Benign neoplasm of left ovary; N70.11 Chronic salpingitis; I10 Essential (primary) hypertension; F32.9 Major depressive disorder, single episode, unspecified; E66.01 Morbid (severe) obesity due to excess calories; Z68.41 Body mass index [BMI] 40.0-44.9, adult; Z87.42 Personal history of other diseases of the female genital tract; Z90.710 Acquired absence of both cervix and uterus; Z90.722 Acquired absence of ovaries, bilateral; Z86.718 Personal history of other venous thrombosis and embolism; Z79.899 Other long term (current) drug therapy; Z88.1 Allergy status to other antibiotic agents; Z88.5 Allergy status to narcotic agent; Z98.51 Tubal ligation status
CPT/HCPCS: 36415; 58552; 81025; 85014; 85018; 85025; 86850; 86900; 86901; 86922; 94640; 94762; A9270; J0690; J1100; J1170; J1650; J1885; J2001; J2250; J2370; J2405; J2704; J2710; J3010; J3490; J7050; J7120